=== PATIENT | female | born 1955 | race Two or more races ===

== ENCOUNTER 2017-03-17 10:50 | Outpatient (CLI) | payer OTHER | END 2017-03-17 10:53 | disposition home or self-care (01) | LOC: SONOGRAMA 10:50 | DX: M19.90 Unspecified osteoarthritis, unspecified site (principal) ==

== ENCOUNTER 2020-07-10 11:49 | Outpatient (CLI) | payer OTHER | END 2020-07-10 11:58 | disposition home or self-care (01) | LOC: SONOGRAMA 11:49 | PROVIDERS: ATTEND Pathology Anatomic Pathology & Clinical Pathology | DX: E04.8 Other specified nontoxic goiter (principal) ==